=== PATIENT | male | born 1990 | race Caucasian/White ===

== ENCOUNTER 2021-01-22 16:06 | Emergency (ER) | payer MEDICAID ==
[~2021-01-22] VITALS: Ht 180.3 cm; Wt 73.0 kg
[2021-01-22] MEDS ORDERED: ACETAMINOPHEN 325MG TABLET PO ONE (18:00)
[2021-01-22] MEDS ORDERED: TRAMADOL 50MG TABLET PO ONE (18:00)
[2021-01-22] MEDS ORDERED: LIDOCAINE HCL 1% 20ML VIAL (Pyxis) INJ INFIL ONE (22:15)
[2021-01-22] MEDS ORDERED: BACITRACIN ZINC OINT UDPKT TOP ONE (23:00)
[2021-01-22] MEDS ORDERED: CEPH500C2 MT (23:01)
[2021-01-22] MEDS ORDERED: ACET-2708 PO (23:01)
[2021-01-22] MEDS ORDERED: NAPR-1176 MT (23:01)
[2021-01-22 23:16] VITALS: BP 116/78
== END 2021-01-22 23:22 | disposition home or self-care (01) ==
LOC: ER 16:06
DX: S61.214A Laceration without foreign body of right ring finger without damage to nail, initial encounter (principal); W31.89XA Contact with other specified machinery, initial encounter; Y93.89 Activity, other specified; Y92.017 Garden or yard in single-family (private) house as the place of occurrence of the external cause; Y99.8 Other external cause status
CPT/HCPCS: 12001; 73130; 99284; J3490; Z7610

== ENCOUNTER 2021-01-26 01:33 | Emergency (ER) | payer MEDICAID ==
[~2021-01-26] VITALS: Ht 177.8 cm; Wt 73.0 kg
[~2021-01-26 01:33] MED LIST: ACET-2708 PO; CEPH500C2 MT; NAPR-1176 MT
[2021-01-26 02:08] VITALS: BP 131/89
== END 2021-01-26 03:36 | disposition home or self-care (01) ==
LOC: ER 01:33
DX: S61.210D Laceration without foreign body of right index finger without damage to nail, subsequent encounter (principal); Z48.00 Encounter for change or removal of nonsurgical wound dressing; X58.XXXD Exposure to other specified factors, subsequent encounter
CPT/HCPCS: 99281